=== PATIENT | female | born 2000 | race Caucasian/White ===

== ENCOUNTER 2020-03-10 12:18 | Emergency (ER) | payer OTHER, SELFPAY ==
[2020-03-10 12:28] VITALS: BP 131/88; PULSE 87; RESP 18; TEMP 36.4; O2SAT 98; BMI 18.6
--- NOTE | 2020-03-10 14:21 | DI.RAD.S_ITS ---
PROCEDURE: XR FINGER RT MIN 2V INDICATIONS: laceration, glass TECHNIQUE: AP hand, 2 views of the 2nd finger(s) acquired. COMPARISON: None. FINDINGS: Bones: No fractures or dislocations. No suspicious bony lesions. Soft tissues: No suspicious soft tissue calcifications. No radiopaque foreign bodies are seen. IMPRESSION: Unremarkable plain film study, without radiopaque foreign bodies identified. Dictated by: Danny Bello M.D. on 03/10/2020 at 13:42 Approved by: Danny Bello M.D. on 03/10/2020 at 13:43
--- NOTE | 2020-03-10 14:27 | ED.WOUNDLAC ---
HPI - Wound/Laceration <Dory Pitt PA-C - Last Filed: 03/10/20 22:21> General Chief Complaint: Extremity Injury, Upper Stated Complaint: wound to index finger of right hand Time Seen by Provider: 03/10/20 14:08 Source: patient Mode of arrival: Ambulatory Limitations: no limitations History of Present Illness HPI narrative: Well-appearing previously healthy 19-year-old who presents with a laceration to the top of her right index finger sustained while she was washing dishes today and a glass broke, she is in the on the [employer], and was on lunch break when this occurred at home. She states she does not need a work note. Bleeding is controlled. She has no other complaints or concerns and has been in her normal state of health recently, she says she hopes she does not have to have sutures as she had a bad experience with this previously. She denies any numbness or tingling, does have pain with range of motion. Related Data Allergies Allergy/AdvReac Type Severity Reaction Status Date / Time No Known Drug Allergies Allergy Verified 03/10/20 15:21 Review of Systems <Dory Pitt PA-C - Last Filed: 03/10/20 22:21> Review of Systems Narrative: GENERAL: Denies chills, fatigue, malaise, fever, sweats. RESPIRATORY: Denies dyspnea, cough, wheezing, hemoptysis, sputum. CARDIOVASCULAR: Denies chest pain, palpitations, orthopnea, edema, MUSCULOSKELETAL: denies weakness, joint pain, or bony pain SKIN: Positive for laceration to right index finger. Denies rash, skin lesions, or other NEUROLOGIC: Denies weakness, headache, numbness, change in speech, confusion, seizures, incoordination. PSYCHIATRIC: No concerning psychosocial issues. 12 point review of systems is negative except for those stated above Patient History <MAG David Last Filed: 03/10/20 22:21> Substance Use Type: does not use Exam <MAG David Last Filed: 03/10/20 22:21> Narrative Exam Narrative: GENERAL: 19 year old patient appears stated age. Well-nourished, well-developed patient, in mild distress. HEAD: Atraumatic. Normocephalic. EYES: Pupils equal round and reactive. Extraocular motions intact. No scleral icterus. No injection or drainage. ENT: Nose without bleeding, purulent drainage. Airway patent. NECK: Trachea midline. Non tender CARDIOVASCULAR: Regular rate and rhythm without murmurs, gallops, or rubs. RESPIRATORY: Clear to auscultation. Breath sounds equal bilaterally. No wheezes, rales, or rhonchi. EXTREMITIES: No edema or joint tenderness. NEURO: AOx3. SKIN: There is a approximately 1 cm curvilinear laceration/avulsion flap of the posterior right 2nd finger just proximal to the PIP joint, bleeding controlled, capillary refill less than 2 seconds on affected digit, sensation is intact, full active range of motion, No other rash or erythema of visible areas Initial Vital Signs Initial Vital Signs: Vital Signs Temperature 97.6 F 03/10/20 12:28 Pulse Rate 87 03/10/20 12:28 Respiratory Rate 18 03/10/20 12:28 Blood Pressure 131/88 03/10/20 12:28 Pulse Oximetry 98 03/10/20 12:28 <Tray Mauricio MD - Last Filed: 03/11/20 07:39> Initial Vital Signs Initial Vital Signs: Vital Signs Temperature 97.6 F 03/10/20 12:28 Pulse Rate 87 03/10/20 12:28 Respiratory Rate 18 03/10/20 12:28 Blood Pressure 131/88 03/10/20 12:28 Pulse Oximetry 98 03/10/20 12:28 Procedures <MAG David Last Filed: 03/10/20 22:21> Laceration Repair Laceration 1: Site: hand (Finger) Side (If applicable): right Size (cm): 1 Description: flap and clean Depth: simple, single layer Local Anesthetic: lidocaine 1% (Digital block) Amount of anesthesia used (mL): 10 (Buffered lidocaine) Pre-repair: wound explored, irrigated extensively and deep structures intact Skin layer closed with: nylon Size (cm): 6-0 Number of sutures: 3 Technique: simple, interrupted Scores <MAG David Last Filed: 03/10/20 22:21> GCS Cristina coma scale eye opening: Spontaneous Cristina coma scale verbal response: Orientated Cristina coma scale motor response: Obey commands Cristina coma scale total score: 15 Course <Dory Pitt PA-C - Last Filed: 03/10/20 22:21> Course Course Narrative: Patient was initially uncomfortable with the idea of having sutures, we discussed the possibility of using skin glue instead, I think this may have been feasible, however sutures were preferable given the nature and location of the wound, patient ultimately elected to have sutures and tolerated the procedure well including a digital block per prior to procedure. Orders Ordered: Discontinued Medications Lidocaine/Sodium Bicarbonate (Buffered Lidocaine 10 Ml Syr) 10 ml INJ NOW ONE Stop: 03/10/20 15:13 Last Admin: 03/10/20 15:22 Dose: 10 ml Documented by: MIKA Vital Signs Vital signs: Vital Signs - 8 hr 03/10/20 16:05 Pulse Rate 69 Blood Pressure 109/64 Pulse Oximetry 99 <Tray Mauricio MD - Last Filed: 03/11/20 07:39> Orders Ordered: Discontinued Medications Lidocaine/Sodium Bicarbonate (Buffered Lidocaine 10 Ml Syr) 10 ml INJ NOW ONE Stop: 03/10/20 15:13 Last Admin: 03/10/20 15:22 Dose: 10 ml Documented by: MIKA Vital Signs Vital signs: Vital Signs - 8 hr 03/10/20 16:05 Pulse Rate 69 Blood Pressure 109/64 Pulse Oximetry 99 MDM - Wound/Laceration <Dory Pitt PA-C - Last Filed: 03/10/20 22:21> Differential Diagnosis Differential diagnosis: Likely laceration Medical Records Attestation: I reviewed the patient's medical records. Imaging Data Extremity x-ray #1: Attestation: I personally reviewed and interpreted this imaging study as follows: Radiologist's Impression: [address] [address] XRay Report Signed Patient: Autumn Camarena [facility]#: [id number] : 2000Acct:[id number] Age/Sex: 19 / FDate of Service: 03/10/20 Loc: ED Accession Number: [id number] Procedure: XR finger RT min 2V Ordering Provider: Dory Pitt P.A-C PROCEDURE: XR FINGER RT MIN 2V INDICATIONS: laceration, glass TECHNIQUE: AP hand, 2 views of the 2nd finger(s) acquired. COMPARISON: None. FINDINGS: Bones: No fractures or dislocations. No suspicious bony lesions. Soft tissues: No suspicious soft tissue calcifications. No radiopaque foreign bodies are seen. IMPRESSION: Unremarkable plain film study, without radiopaque foreign bodies identified. Dictated by: Danny Bello M.D. on 03/10/2020 at 13:42 Approved by: Danny Bello M.D. on 03/10/2020 at 13:43 [facility] Narrative Medical decision making narrative: This is a well-appearing 19-year-old who presents with complaint of a laceration to her right 2nd finger sustained from a broken glass table washing dishes at lunch. Differential diagnoses considered include laceration, retained foreign body, risk of infection, tendon injury, vascular injury, nerve injury. Area was washed extensively and cleanse, tetanus is up-to-date, laceration was repaired with sutures after a digital block was performed. She was also provided with a splint to minimize excessive movement of flexion the finger as the laceration is adjacent to her joint. Return precautions were provided, all questions were answered. Discharge Plan Departure Patient Disposition: Home Clinical Impression: Laceration of finger of right hand Qualifiers: Encounter type: initial encounter Finger: index finger Damage to nail status: without damage Foreign body presence: unspecified Qualified Code(s): S61.210A - Laceration without foreign body of right index finger without damage to nail, initial encounter Discharge Date/Time: 03/10/20 16:06 Instructions: DI for Laceration Repair -- Finger Activity Restrictions/Additional Instructions: Thank you for letting us to be part of your care in the emergency department today. There is no evidence of an emergent or life threatening illness at this time, but follow up with your doctor in 1-2 days is recommended nonetheless to continue to rule out serious underlying causes of your symptoms. Please call the office for an appointment. Please return to the Emergency Department for any worsening or persistent symptoms. Please take Tylenol and ibuprofen as needed for pain. I recommend that you have the sutures removed in approximately 7 days, please monitor for any signs of infection including redness, heat, swelling, increasing pain or any other symptoms of concern to you and do not hesitate to seek medical care if needed. <Tray Mauricio MD - Last Filed: 03/11/20 07:39> [facility] Cosignature Attestation: I was immediately available in the department for consultation. This documentation has been reviewed and I agree with assessment and plan. Supervised by Tray Mauricio MD
[2020-03-10] MEDS: LIDO 1%/SOD BICARB 8.4% (10ML) 10 ML SYRINGE INJ (15:22)
[2020-03-10 16:05] VITALS: BP 109/64; PULSE 69; O2SAT 99
== END 2020-03-10 16:06 | disposition home or self-care (01) ==
PROVIDERS: Emergency Provider Student in an Organized Health Care Education/Training Program
DX: S61.210A Laceration without foreign body of right index finger without damage to nail, initial encounter (principal); W25.XXXA Contact with sharp glass, initial encounter
CPT/HCPCS: 12001; 73140; 99283